=== PATIENT | male | born 1965 | race Caucasian/White ===

== ENCOUNTER 2018-11-26 18:51 | Emergency (ER) | payer OTHER ==
[~2018-11-26] VITALS: Ht 175.3 cm; Wt 82.0 kg
[2018-11-26 19:04] VITALS: Ht 175.3 cm; Wt 82.0 kg
[2018-11-26] MEDS ORDERED: ONDANSETRON 4 MG INJ IV STA (20:26)
[2018-11-26] MEDS ORDERED: SOD CHLORIDE 0.9% 1,000 ML IV STA (20:26)
[2018-11-26] MEDS ORDERED: HYDROmorphONE 1 MG/ML SYG IV STA (20:26)
[2018-11-26] MEDS ORDERED: ACETAMINOPHEN 325 MG TAB PO ONE (20:30)
--- NOTE | 2018-11-26 21:05 | ERD ---
ER Documentation Chief Complaint Chief Complaint left abdominal pain x 1 day, also c/o nausea HPI This is a 53-year-old male who is here for abdominal pain. He is also had a fever with extreme nausea but no vomiting and diarrhea. The patient was seen at a urgent care this afternoon and was told to go to the ER. At the urgent care he had a fever of 101. He has a history of diverticulosis but no diverticulitis. He is complained to me a pain on the right lower quadrant and some mild pain in the left lower quadrant ROS All systems reviewed and are negative except as per history of present illness. Medications Home Meds Active Scripts Hydrocodone/Acetaminophen (Rupert 10-325 Tablet) 1 Each Tablet, 1 TAB PO Q6H PRN for PAIN, #7 TAB Prov:MLAOUOS,AMYSTOLOS A. DO 11/26/18 Metronidazole* (Flagyl*) 500 Mg Tablet, 500 MG PO TID for 7 Days, TAB Prov:LEKKOS,APOSTOLOS A. DO 11/26/18 Ciprofloxacin Hcl* (Ciprofloxacin Hcl*) 500 Mg Tablet, 500 MG PO BID for 7 Days, TAB Prov:LEKKOS,APOSTOLOS A. DO 11/26/18 Allergies Allergies: Coded Allergies: No Known Drug Allergies (Verified Allergy, Unknown, 11/26/18) PMhx/Soc History of Surgery: No Anesthesia Reaction: No Hx Neurological Disorder: No Hx Respiratory Disorders: No Hx Cardiac Disorders: No Hx Psychiatric Problems: No Hx Miscellaneous Medical Probl: Yes (Diverticulosis) Hx Alcohol Use: Yes (Socially) Hx Substance Use: No Hx Tobacco Use: No Smoking Status: Never smoker FmHx Family History: No coronary disease Physical Exam Vitals Vital Signs Date Temp Pulse Resp B/P (MAP) Pulse Ox O2 O2 Flow FiO2 Time Delivery Rate 11/26/18 98.1 85 18 104/72 100 Room Air 22:53 (83) 11/26/18 100.6 20:52 11/26/18 100.6 100 18 108/68 98 19:04 (81) Physical Exam Const: Well-developed, well-nourished Head: Atraumatic, normocephalic Eyes: Normal Conjunctiva, PERRLA, EOMI, normal sclera, no nystagmus ENT: Normal External Ears, Nose and Mouth, moist mucus membranes. Neck: Full range of motion. No meningismus, no lymphadenopathy. Resp: Clear to auscultation bilaterally, no wheezing, rhonchi, rales Cardio: Regular rate and rhythm, no murmurs, S1 S2 present Abd: Soft,, Moderate right lower quadrant tenderness minimal left lower, negative Rovsing non distended. Normal bowel sounds, no guarding or rebound, no pulsitile abdominal masses or bruits Skin: No petechiae or rashes, no ecchymosis , no maculopapular rash Back: No midline or flank tenderness Ext: No cyanosis, or edema, FROM x 4, normal inspection, ne urovascularly intact x 4 Neur: Awake and alert, STR 5/5 x 4, sensation intact x 4, no focal fi ndings, cerebellum intact Psych: Normal Mood and Affect Result Diagram: 11/26/18204411/26/182044 Results 24 hrs Laboratory Tests Test 11/26/18 20:45 White Blood Count 12.3 10^3/ul Red Blood Count 5.14 10^6/ul Hemoglobin 15.5 g/dl Hematocrit 46.6 % Mean Corpuscular Volume 90.7 fl Mean Corpuscular Hemoglobin 30.2 pg Mean Corpuscular Hemoglobin Concent 33.3 g/dl Red Cell Distribution Width 12.2 % Platelet Count 164 10^3/UL Mean Platelet Volume 11.3 fl Immature Granulocytes % 0.300 % Neutrophils % 85.2 % Lymphocytes % 8.1 % Monocytes % 6.2 % Eosinophils % 0.0 % Basophils % 0.2 % Nucleated Red Blood Cells % 0.0 /100WBC Immature Granulocytes # 0.040 10^3/ul Neutrophils # 10.5 10^3/ul Lymphocytes # 1.0 10^3/ul Monocytes # 0.8 10^3/ul Eosinophils # 0.0 10^3/ul Basophils # 0.0 10^3/ul Nucleated Red Blood Cells # 0.0 10^3/ul Urine Color MARCELINA Urine Clarity SLIGHTLY CLOUDY Urine pH 6.0 Urine Specific [place] 1.028 Urine Ketones NEGATIVE mg/dL Urine Nitrite NEGATIVE mg/dL Urine Bilirubin NEGATIVE mg/dL Urine Urobilinogen 1+ mg/dL Urine Leukocyte Esterase NEGATIVE Yusuf/ul Urine Microscopic RBC 14 /HPF Urine Microscopic WBC 2 /HPF Urine Mucus MANY /HPF Urine Hemoglobin 2+ mg/dL Urine Glucose NEGATIVE mg/dL Urine Total Protein 1+ mg/dl Sodium Level 142 mmol/L Potassium Level 3.9 mmol/L Chloride Level 102 mmol/L Carbon Dioxide Level 30 mmol/L Anion Gap 10 Blood Urea Nitrogen 12 mg/dl Creatinine 1.24 mg/dl Est Glomerular Filtrat Rate mL/min > 60 mL/min Glucose Level 102 mg/dl Calcium Level 9.8 mg/dl Total Bilirubin 1.2 mg/dl Direct Bilirubin 0.00 mg/dl Indirect Bilirubin 1.2 mg/dl Aspartate Amino Transf (AST/SGOT) 23 IU/L Alanine Aminotransferase (ALT/SGPT) 42 IU/L Alkaline Phosphatase 69 IU/L Total Protein 8.3 g/dl Albumin 4.7 g/dl Globulin 3.60 g/dl Albumin/Globulin Ratio 1.30 Lipase 29 U/L Current Medications Medications Dose Sig/Gillian Start Time Status Last (Trade) Ordered Route PRN Stop Time Admin Dose Reason Admin Sodium 1,000 ml @ Q1H STAT 11/26/18 DC 11/26/18 Chloride 1,000 mls/hr IV 20:26 20:51 11/26/18 21:25 1 mg ONCE STAT 11/26/18 DC 11/26/18 Hydromorphone IV 20:26 20:52 HCl 11/26/18 20:28 (Dilaudid) Ondansetron 4 mg ONCE STAT 11/26/18 DC 11/26/18 HCl (Zofran IV 20:26 20:52 Inj) 11/26/18 20:28 650 mg ONCE ONCE 11/26/18 DC 11/26/18 Acetaminophen PO 20:30 20:52 (Tylenol 11/26/18 20:31 Tab) Procedures/MDM Patient's labs are relatively unremarkable. There is a mild white blood count elevation of 12.3. [place] [id number] Radiology Main Line: [phone] DIAGNOSTIC IMAGING REPORT Patient: ARYA DEVINE : 1965 Age: 53 Sex: M MR #: [id number] DOS: 11/26/182025 Ordering MD: MASON MENCHACA DO Location: E/R Room/Bed: PROCEDURE: CT abdomen and pelvis with contrast. CLINICAL INDICATION: Abdominal pain. TECHNIQUE: CT scan of the abdomen and pelvis with contrast was performed. Coronal and sagittal images were also reformatted. 90 cc Isovue -300 intravenous contrast was administered without complication. DICOM images are available. One or more of the following dose reduction techniques were used: Automated exposure control, adjustment of the mA and/or kV according to patient size, use of iterative reconstruction technique. Total exam CTDIvol = 10.70 mGy and DLP = 733.24 mGy-cm. COMPARISON: None. FINDINGS: Visualized lower thorax: Dependent bibasilar subsegmental atelectasis is present. There is no evidence for pleural effusion. Liver, gallbladder, pancreas and spleen: Hepatomegaly hepatic steatosis is present with normal liver contour. There is no evidence for liver mass or ductal dilatation. The gallbladder is unremarkable. No common bile duct dilatation is evident. The pancreas is normal. Splenomegaly of 15 cm is present. Adrenal glands and genitourinary system: The adrenal glands are normal bilaterally. The kidneys are normal in size, contour and attenuation with no evidence for masses, calculi or hydronephrosis. Symmetric enhancement of the kidneys is present without evidence of pyelonephritis The ureters are unremarkable. The urinary bladder shows no abnormality. Prostate gland is within limits of normal for size. The scrotum shows no gross abnormality. Gastrointestinal system: The stomach, small bowel and large intestine are normal in caliber. There is no evidence of obstruction, ileus or inflammation. The appendix and surrounding fat are normal. Extensive diverticular disease is seen throughout the entire colon. However, there is no evidence for acute diverticulitis. No colonic wall thickening to suggest colitis is demonstrated. Peritoneum, retroperitoneum, vessels and lymph nodes: The abdominal aorta is normal in caliber. There is no evidence for atherosclerotic calcification. Inferior vena cava is normal in caliber. There is no evidence for adenopathy. The peritoneal cavity is normal with no evidence for ascites. There is no evidence of pneumoperitoneum. Osseous structures and musculoskeletal system: There is no evidence for acute osseous abnormality or muscular pathology. No subcutaneous abnormalities are present. RPTAT:HJJR IMPRESSION: 1. Extensive diverticulosis throughout the entire colon without evidence for diverticulitis or acute intra-abdominal abnormality. 2. Hepatosplenomegaly and hepatic steatosis. 3. Dependent bibasilar subsegmental atelectasis of the lung bases. Wellington Vines, Physician Date Time Electronically viewed and signed by Wellington Vines Physician on 11/26/2018 23:25 JR/ CC: MASON MENCHACA DO [id number] Patient has no evidence of appendicitis there is extensive diverticulosis however he may have some microscopic diverticulitis causing his symptoms. We will treat with some Cipro Flagyl and pain medication Departure Diagnosis: Primary Impression: Abdominal pain Abdominal location: right lower quadrant Qualified Codes: R10.31 - Right lower quadrant pain Condition: Stable MASON MENCHACA DO Nov 26, 2018 21:05
[2018-11-26] MEDS ORDERED: HYDR-3980 PO (23:15)
[2018-11-26] MEDS ORDERED: METR500T PO (23:15)
[2018-11-26] MEDS ORDERED: CIPR500T4 PO (23:15)
[2018-11-26 23:42] VITALS: BP 102/75; PULSE 76; RESP 18
== END 2018-11-26 23:52 | disposition home or self-care (01) ==
LOC: E/R 18:51
DX: R10.31 Right lower quadrant pain (principal); R11.0 Nausea
CPT/HCPCS: 36415; 74177; 80053; 81001; 83690; 85025; 96361; 96374; 96375; 99285; J1170; J2405; J7030